=== PATIENT | female | born 1945 | race African-American/Black ===

== ENCOUNTER 2024-02-09 00:07 | Inpatient (IN) | payer MEDICARE, BC ==
[~2024-02-09] VITALS: Ht 162.6 cm; Wt 63.0 kg
[2024-02-09] MEDS ORDERED: STATIN MEDICATION PO (00:37)
[2024-02-09 03:49] VITALS: BP 121/81; TEMP 98; O2SAT 100
[2024-02-09] MEDS ORDERED: MAG HYDROX/AL HYDROX/SIMETH 30 ML LIQUID UDC PO PRN (04:15)
[2024-02-09] MEDS ORDERED: CLONAZEPAM 0.5 MG TABLET PO PRN (04:15)
[2024-02-09] MEDS ORDERED: ACETAMINOPHEN 325 MG TABLET PO PRN (04:15)
[2024-02-09] MEDS: BLOOD SUGAR DIAGNOSTIC 1 EACH STRIP VI ONE (04:58)
[2024-02-09 08:07] VITALS: BP 123/69; TEMP 98.2; O2SAT 98
[2024-02-09] MEDS: ESCITALOPRAM OXALATE 10 MG TABLET NG SCH (13:18)
[2024-02-09] MEDS ORDERED: ATOR10TA PO (13:58)
[2024-02-09] MEDS ORDERED: LEVO75TA56 PO (13:58)
[2024-02-09] MEDS ORDERED: CARV3.12 PO (13:59)
[2024-02-09] MEDS ORDERED: LOSA25TA27 PO (13:59)
[2024-02-09] MEDS ORDERED: SENN-291 PO (14:00)
[2024-02-09] MEDS ORDERED: DAPA10TA PO (14:00)
[2024-02-09 15:30] VITALS: BP 111/58; TEMP 98.2; O2SAT 98
[2024-02-09 19:45] VITALS: BP 120/61; TEMP 98; O2SAT 96
[2024-02-10 07:30] VITALS: BP 103/71; TEMP 98.2; O2SAT 99
[2024-02-10] MEDS: ARIPIPRAZOLE 2 MG TABLET PO SCH (09:43)
[2024-02-10 10:09] LABS: HEMATOCRIT 33.2 % (31.2-41.9); HEMOGLOBIN 10.6 g/dL (10.9-14.3); LYMPHOCYTES % (AUTO) 43.2 % (20.5-51.5); MEAN CORPUSCULAR HEMOGLOBIN 26.1 uug (24.7-32.8); MEAN CORPUSCULAR HGB CONC 32 g/dL (32.3-35.6); MEAN CORPUSCULAR VOLUME 81.6 fL (75.5-95.3); PLATELET COUNT (AUTO) 164 K/uL (179-408); RED BLOOD CELL COUNT(AUTO) 4.07 MIL/uL (3.63-4.92); RED CELL DISTRIBUTION WIDTH 16.9 % (12.3-17.7)
[2024-02-10 10:10] LABS: BASOPHILS % (AUTO) 0.9 % (0.0-2.0); EOSINOPHILS # (AUTO) 0.1 K/uL (0.0-0.7); EOSINOPHILS % (AUTO) 2.5 % (0.0-7.0); LYMPHOCYTES # (AUTO) 2.1 K/uL (0.8-4.8); MONOCYTES # (AUTO) 0.3 K/uL (0.1-1.30); MONOCYTES % (AUTO) 6.4 % (0.0-11.0); NEUTROPHILS # (AUTO) 2.2 K/uL (1.8-8.9)
[2024-02-10 14:10] LABS: CALCIUM 8.9 mg/dL (8.5-10.1); CARBON DIOXIDE 27 mmol/L (21-32); CHLORIDE 110 mmol/L (98-107); CREATININE 1.1 mg/dL (0.6-1.3); GLUCOSE 86 mg/dL (74-106); POTASSIUM 4.4 mmol/L (3.5-5.1); SODIUM SERUM 143 mmol/L (136-145); UREA NITROGEN, BLOOD 13 mg/dL (7-18)
[2024-02-10 14:11] LABS: PHOSPHOROUS 3.5 mg/dL (2.5-4.9)
[2024-02-10 15:00] LABS: THYROID STIMULATING HORMONE 2.891 mIU/mL (0.358-3.740)
[2024-02-10 15:23] VITALS: BP 118/64; TEMP 98; O2SAT 99
[2024-02-10 16:32] LABS: WHITE BLOOD COUNT (AUTO) 4.8 K/uL (3.8-11.8)
[2024-02-10 20:00] VITALS: BP 100/66; TEMP 98; O2SAT 100
[2024-02-10] MEDS: CARVEDILOL 3.125 MG TABLET PO SCH (20:57)
[2024-02-10] MEDS: ATORVASTATIN 10 MG TABLET PO SCH (20:57)
[2024-02-11] MEDS: LEVOTHYROXINE SODIUM 75 MCG TABLET PO SCH (07:35)
[2024-02-11 07:54] VITALS: BP 106/53; TEMP 98; O2SAT 100
[2024-02-11] MEDS: SENNOSIDES/DOCUSATE SODIUM TABLET PO SCH (09:00)
[2024-02-11] MEDS: DAPAGLIFLOZIN PROPANEDIOL 5 MG TABLET PO SCH (09:54)
[2024-02-11] MEDS: LOSARTAN POTASSIUM 25 MG TABLET PO SCH (09:54)
[2024-02-11 15:09] VITALS: BP 122/67; TEMP 98; O2SAT 98
[2024-02-11 20:00] VITALS: BP 112/63; TEMP 98.2; O2SAT 100
[2024-02-12 07:58] VITALS: BP 107/57; TEMP 98; O2SAT 100
[2024-02-12 15:17] VITALS: BP 90/47; TEMP 98; O2SAT 100
[2024-02-12 20:00] VITALS: BP 102/57; TEMP 98.4; O2SAT 100
[2024-02-13 07:30] VITALS: BP 103/56; TEMP 97.4; O2SAT 100
[2024-02-13 16:36] VITALS: BP 99/57; TEMP 98; O2SAT 99
[2024-02-13 20:00] VITALS: BP 94/55; TEMP 98.3; O2SAT 97
[2024-02-13] MEDS: MAGNESIUM HYDROXIDE 30 ML LIQUID UDC PO PRN (21:02)
[2024-02-14 07:58] VITALS: BP 102/51; TEMP 98.7; O2SAT 99
[2024-02-14] MEDS: ESCITALOPRAM OXALATE 10 MG TABLET PO SCH (09:09)
[2024-02-14 16:39] VITALS: BP 127/60; TEMP 98.4; O2SAT 98
[2024-02-14 20:12] VITALS: BP 115/63; TEMP 98.1; O2SAT 96
[2024-02-15 08:23] VITALS: BP 100/54; TEMP 98.1; O2SAT 98
[2024-02-15 16:13] VITALS: BP 97/52; TEMP 98; O2SAT 98
[2024-02-15 19:47] VITALS: BP 106/54; TEMP 97.9; O2SAT 96
[2024-02-15] MEDS: SENNOSIDES/DOCUSATE SODIUM TABLET PO SCH (20:34)
[2024-02-16 08:26] VITALS: BP 91/46; TEMP 98; O2SAT 98
[2024-02-16] MEDS: ARIPIPRAZOLE 2 MG TABLET PO SCH (08:37)
[2024-02-16 15:46] VITALS: BP 101/49; TEMP 98; O2SAT 99
[2024-02-16 20:08] VITALS: BP 109/66; TEMP 98.1; O2SAT 98
[2024-02-17 07:58] VITALS: BP 107/68; TEMP 98; O2SAT 99
[2024-02-17 16:37] VITALS: BP 93/52; TEMP 98; O2SAT 99
[2024-02-17 20:11] VITALS: BP 101/60; TEMP 98.1; O2SAT 98
[2024-02-18 08:00] VITALS: BP 100/54; TEMP 98; O2SAT 98
[2024-02-18 15:07] VITALS: BP 105/59; TEMP 98; O2SAT 98
[2024-02-18 20:00] VITALS: BP 121/74; TEMP 98; O2SAT 99
[2024-02-19 07:53] VITALS: BP 104/54; TEMP 98.2; O2SAT 99
[2024-02-19 16:15] VITALS: BP 97/56; TEMP 97.8; O2SAT 95
[2024-02-19 20:00] VITALS: BP 100/61; TEMP 98.8; O2SAT 99
[2024-02-20 08:48] VITALS: BP 97/57; TEMP 98.5; O2SAT 99
[2024-02-20 15:57] VITALS: BP 94/58; TEMP 98.3; O2SAT 99
[2024-02-20 20:00] VITALS: BP 107/60; TEMP 98.4; O2SAT 99
[2024-02-20] MEDS: TEMAZEPAM 7.5 MG CAPSULE PO PRN (22:04)
[2024-02-21 08:52] VITALS: BP 128/77; TEMP 98; O2SAT 98
[2024-02-21 16:15] VITALS: BP 127/75; TEMP 98; O2SAT 98
[2024-02-21 20:16] VITALS: BP 130/74; TEMP 98.4; O2SAT 96
[2024-02-22 08:01] VITALS: BP 126/75; TEMP 98.4; O2SAT 98
[2024-02-22 16:11] VITALS: BP 115/64; TEMP 98.1; O2SAT 98
== END 2024-02-22 17:15 | DRG 885 ==
LOC: ER 00:53 → GPS 02:05
PROVIDERS: ADMIT Psychiatry & Neurology Psychiatry; ATTEND Student in an Organized Health Care Education/Training Program
DX: F33.2 Major depressive disorder, recurrent severe without psychotic features (principal); N18.9 Chronic kidney disease, unspecified; F03.93 Unspecified dementia, unspecified severity, with mood disturbance; E11.22 Type 2 diabetes mellitus with diabetic chronic kidney disease; E03.9 Hypothyroidism, unspecified; I12.9 Hypertensive chronic kidney disease with stage 1 through stage 4 chronic kidney disease, or unspecified chronic kidney disease; E78.5 Hyperlipidemia, unspecified; Z79.899 Other long term (current) drug therapy; Z79.84 Long term (current) use of oral hypoglycemic drugs; Z79.890 Hormone replacement therapy
CPT/HCPCS: 36415; 83735; 84100; 84443; 85025; A4606; A4663